=== PATIENT | male | born 1990 ===

== ENCOUNTER 2016-06-13 13:44 | Emergency (ER) | payer BC, OTHER ==
[2016-06-13 14:28] VITALS: BP 138/78
[2016-06-13] MEDS ORDERED: Tetan/Diph/Pertus SYR(Tdap)* 0.5 ML SYR(BOOSTRIX) use SYR IM ONE (14:50)
--- NOTE | 2016-06-13 15:03 | UC ---
Laceration HPI - HPI Summary HPI Summary: patient cut left 2nd finger on tin can about 2 hours ago. need to [place] tet[place]. bleeding is well controlled, lac hs clean well approximating edges. - History Of Current Complaint Chief Complaint: UCLaceration Stated Complaint: LEFT HAND/FINGER LACERATION WC Time Seen by Provider: 06/13/16 14:48 Hx Obtained From: Patient Laceration Location: Finger Mechanism Of Injury: Sharp Trauma Onset/Duration: Sudden Onset, Lasting Hours Severity: Mild Related History: Occupational Injury - Allergies/Home Medications Allergies/Adverse Reactions: Allergies Allergy/AdvReac Type Severity Reaction Status Date / Time No Known Allergies Allergy Verified 06/13/16 14:29 Home Medications: Home Medications NK [No Home Medications Reported] 06/13/16 [History Confirmed 06/13/16] PMH/Surg Hx/FS Hx/Imm Hx Previously Healthy: Yes - Surgical History Surgical History: None - Family History Known Family History: Positive: Hypertension - Social History Alcohol Use: Occasionally Substance Use Type: Excessive Caffeine Smoking Status (MU): Never Smoked Tobacco Amount Used/How Often: Chewed in past - Immunization History Most Recent Tetanus Shot: unknown Review of Systems Constitutional: Negative Skin: Other - laceration Eyes: Negative ENT: Negative Respiratory: Negative Cardiovascular: Negative Gastrointestinal: Negative Genitourinary: Negative Motor: Negative Neurovascular: Negative Musculoskeletal: Negative Neurological: Negative Psychological: Negative All Other Systems Reviewed And Are Negative: Yes Physical Exam Triage Information Reviewed: Yes Appearance: Well-Appearing, Well-Nourished, Pain Distress Vital Signs: Initial Vital Signs Temp 98.6 F 06/13/16 14:20 Pulse 65 06/13/16 14:20 Resp 18 06/13/16 14:20 BP 138/78 06/13/16 14:20 Vital Signs Reviewed: Yes Eye Exam: Normal ENT Exam: Normal Dental Exam: Normal Neck exam: Normal Respiratory Exam: Normal Cardiovascular Exam: Normal Abdominal Exam: Normal Bowel Sounds: Positive: Present Musculoskeletal Exam: Normal Neurological Exam: Normal Psychological Exam: Normal Skin: Positive: Other - 2.5 cm simple laceration on left 2nd finger Laceration Repair - Laceration Repair 1 Description: Linear : No Repair Necessary Laceration Size After Repair: Length (cm) - 2.5 cm Modified For Repair: No Cleansing Completed Via Routine Prep: Yes Irrigation With Pressure Irrigation Device: Yes Closure Material: Skin Adhesive, SteriStrips - 4 Closure Method: Single Layer Suture Of: Skin Laceration Course/Dx - Course/Dx Course Of Treatment: hx obtained, exam performed meds reviewed, tetanus given, lac glued and steri strips applied, finger splint placed, educated on care and warning signs of infection. - Differential Dx - Laceration/Wound Differental Diagnoses: Cellulitis, Laceration, Tendon Laceration Provider Diagnoses: laceration to finger Discharge - Discharge Plan Condition: Stable Disposition: HOME Patient Education Materials: Skin Adhesive Care (ED), Finger Laceration (ED) Referrals: Moises Irene MD [Primary Care Provider] - Additional Instructions: keep area clean and dry. wear the splint for the next 5 days. allow the glue and steri-strips to fall off on their own. follow up with medical provider.if sighns of infection occur.
== END 2016-06-13 15:35 | disposition home or self-care (01) ==
LOC: UCCORT 13:44
DX: S61.211A Laceration without foreign body of left index finger without damage to nail, initial encounter (principal); W26.8XXA Contact with other sharp object(s), not elsewhere classified, initial encounter; Y93.9 Activity, unspecified; Y92.9 Unspecified place or not applicable; Z23 Encounter for immunization
CPT/HCPCS: 12001; 90471; 90715; 99202; G0463